=== PATIENT | female | born 1945 | race Caucasian/White ===

== ENCOUNTER 2018-07-17 14:29 | Day surgery (SDC) | payer MEDICARE, MEDICAID ==
[2018-07-14 08:52] LABS: BASOPHILS % (AUTO) 0.5 % (0-1); EOSINOPHILS # (AUTO) 0.3 X10'3 (0-0.9); EOSINOPHILS % (AUTO) 3.7 % (0-6); HEMOGLOBIN 12.8 g/dl (12.0-16.0); LYMPHOCYTES # (AUTO) 2.9 X10'3 (1.1-4.8); MEAN CORPUSCULAR HEMOGLOBIN 32.4 PG (27.0-31.0); MEAN CORPUSCULAR HGB CONC 34.5 g/dL (33.0-36.5); MEAN CORPUSCULAR VOLUME 94.1 FL (78-98); MEAN PLATELET VOLUME 8.8 FL (7.4-10.4); MONOCYTES # (AUTO) 0.4 X10'3 (0-0.9); MONOCYTES % (AUTO) 5.8 % (2-12); PLATELET COUNT 200 X10'3 (140-440); RED BLOOD COUNT 3.94 X10'6 (4.20-5.60); RED CELL DISTRIBUTION WIDTH 15.3 % (11.5-14.5); WHITE BLOOD COUNT 7.7 X10'3 (4.5-11.0)
[2018-07-14 09:03] LABS: ALBUMIN 3.6 G/DL (3.4-5.0); ANION GAP 11 (8-16); BLOOD UREA NITROGEN 16 MG/DL (7-18); BUN/CREATININE RATIO 16.3 (6.6-38.0); CHLORIDE 106 MMOL/L (99-107); CREATININE 0.98 MG/DL (0.40-0.90); GLUCOSE 150 MG/DL (70-104); POTASSIUM 4.4 MMOL/L (3.5-5.1); SODIUM 141 MMOL/L (135-145); eGFR 56 ML/MIN
[2018-07-14 09:08] LABS: PARTIAL THROMBOPLASTIN TIME 25 SECONDS (22-32)
[~2018-07-17] VITALS: Ht 172.7 cm; Wt 84.3 kg
[2018-07-17] VITALS (8 sets, daily range): BP systolic 122–152; BP diastolic 65–80
[2018-07-17] MEDS ORDERED: normal saline 1000ml 1,000 ML IV SCH (15:00)
[2018-07-17] MEDS ORDERED: LORazepam 0.5 MG tablet PO PRN (15:00)
[2018-07-17] MEDS ORDERED: diphenhydrAMINE 25mg capsule PO PRN (15:00)
[2018-07-17] MEDS ORDERED: LISI-600 PO (15:58)
[2018-07-17] MEDS ORDERED: ATOR80TA PO (15:58)
[2018-07-17] MEDS ORDERED: PARO10TA4 PO (15:58)
[2018-07-17] MEDS ORDERED: ACET-2119 PO (15:58)
[2018-07-17] MEDS ORDERED: APIX5TAB3 PO (15:58)
[2018-07-17] MEDS ORDERED: CARV3.122 PO (15:58)
[2018-07-17] MEDS ORDERED: METF-436 PO (15:58)
[2018-07-17] MEDS ORDERED: GABA-530 PO (15:58)
[2018-07-17] MEDS ORDERED: TRAZ-218 PO (15:58)
[2018-07-17] MEDS ORDERED: ENOX80SY7 SUBCUT (15:58)
[2018-07-17] MEDS ORDERED: OXYB15TA PO (15:58)
[2018-07-17] MEDS ORDERED: LIDOcaine 1% (10mg/ml)w/preservative injection 20ml MDV ONE (16:29)
[2018-07-17] MEDS ORDERED: fentaNYL/PF 50MCG/1 ML 2ML syringe ONE (16:29)
[2018-07-17] MEDS ORDERED: midazolam 2 mg/2 ml injection ONE (16:29)
[2018-07-17] MEDS ORDERED: iohexol 350MG/ML 100ml bottle IV ONE (16:29)
== END 2018-07-17 21:00 | disposition home or self-care (01) ==
LOC: SSTAY O 14:29
PROVIDERS: ATTEND Internal Medicine Interventional Cardiology
DX: I25.10 Atherosclerotic heart disease of native coronary artery without angina pectoris (principal); I48.91 Unspecified atrial fibrillation; I50.9 Heart failure, unspecified; E11.22 Type 2 diabetes mellitus with diabetic chronic kidney disease; N18.9 Chronic kidney disease, unspecified; M10.9 Gout, unspecified; I13.0 Hypertensive heart and chronic kidney disease with heart failure and stage 1 through stage 4 chronic kidney disease, or unspecified chronic kidney disease; Z90.49 Acquired absence of other specified parts of digestive tract; Z79.899 Other long term (current) drug therapy
CPT/HCPCS: 36415; 80048; 82948; 85025; 85610; 85730; 93005; 93458; 99152; A6257; J1644; J2001; J2250; J3010; J7030; Q0163; Q9967; A4620; C1769